=== PATIENT | female | born 1995 | race African-American/Black ===

== ENCOUNTER 2017-05-10 11:52 | Emergency (ER) | payer SELFPAY ==
[~2017-05-10] VITALS: Ht 170.2 cm; Wt 63.9 kg
[2017-05-10] MEDS ORDERED: METRONIDAZOLE (11:58)
[2017-05-10] MEDS ORDERED: SODIUM CHLORIDE 0.9% 1,000 ML IV ONE ×2 (15:13→17:15)
[2017-05-10] MEDS ORDERED: ONDANSETRON HCL 4MG/2ML VIAL IV STA (15:13)
[2017-05-10 15:48] LABS: BASOPHILS % 0.5 % (0.0-2.0); HEMOGLOBIN. 9.5 g/dL (12.0-16.0); LYMPHOCYTES % 14.5 % (20.0-50.0); MEAN CORPUSCULAR HEMOGLOBIN 25.6 pg (28.0-32.0); MEAN CORPUSCULAR VOLUME 77.5 fL (81.0-99.0); MEAN PLATELET VOLUME 9.7 fl (7.4-10.4); MONOCYTES % 3.8 % (2.0-8.0); NEUTROPHILS % 81.2 % (40.0-76.0); PLATELET 185 x1000/uL (130-400); RED BLOOD CELL COUNT 3.74 mill/uL (4.2-5.4); RED CELL DISTRIBUTION WIDTH 15.3 % (11.6-14.6)
[2017-05-10 15:49] LABS: INR 1.1; PROTHROMBIN TIME 11.4 sec
[2017-05-10 15:50] LABS: CHLORIDE 107 mEq/L (98-107)
[2017-05-10 15:56] LABS: CARBON DIOXIDE 25 mEq/L (21-32)
[2017-05-10] MEDS ORDERED: METOCLOPRAMIDE HCL 10MG/2ML VIAL IV ONE (17:15)
[2017-05-10 17:35] LABS: CLARITY URINE CLEAR (CLEAR); COLOR URINE ORANGE (YELLOW); GLUCOSE URINE NEGATIVE (NEGATIVE); KETONES URINE 4+ (NEGATIVE); LEUKOCYTE ESTERASE URINE 1+ (NEGATIVE); NITRITE URINE NEGATIVE (NEGATIVE); OCCULT BLOOD URINE NEGATIVE (NEGATIVE); PROTEIN URINE 1+ (NEGATIVE); SPECIFIC GRAVITY URINE 1.019 (1.005-1.030)
[2017-05-10] MEDS ORDERED: MORPHINE SULFATE 4 MG/ML CPJ (NOT FOR IM USE) IV ONE (18:00)
[2017-05-10 21:56] VITALS: BP 114/62
== END 2017-05-10 22:00 | disposition home or self-care (01) ==
LOC: ER 11:52
DX: T37.8X5A Adverse effect of other specified systemic anti-infectives and antiparasitics, initial encounter (principal); Y92.89 Other specified places as the place of occurrence of the external cause
CPT/HCPCS: 36415; 76705; 80053; 81001; 83690; 85025; 85610; 96361; 96374; 96375; 99285; J2270; J2405; J2765; J7030; Z7610

== ENCOUNTER 2018-04-10 10:34 | Emergency (ER) | payer SELFPAY ==
[~2018-04-10] VITALS: Ht 167.6 cm; Wt 53.0 kg
[~2018-04-10 10:34] MED LIST: METRONIDAZOLE
[2018-04-10 10:39] VITALS: BP 122/82
[2018-04-10 11:35] LABS: CLARITY URINE CLOUDY (CLEAR); COLOR URINE YELLOW (YELLOW); KETONES URINE NEGATIVE (NEGATIVE); LEUKOCYTE ESTERASE URINE 1+ (NEGATIVE); NITRITE URINE NEGATIVE (NEGATIVE); OCCULT BLOOD URINE TRACE (NEGATIVE); PH URINE 5.5 (4.5-8.0); PROTEIN URINE NEGATIVE (NEGATIVE); SPECIFIC GRAVITY URINE 1.023 (1.005-1.030)
[2018-04-10] MEDS ORDERED: KETOROLAC 60MG/2ML VIAL IM ONE (12:15)
== END 2018-04-10 13:35 | disposition home or self-care (01) ==
LOC: ER 10:34
DX: M54.5 Low back pain (principal); Y93.89 Activity, other specified; W11.XXXA Fall on and from ladder, initial encounter; Y92.89 Other specified places as the place of occurrence of the external cause; N39.0 Urinary tract infection, site not specified; M41.9 Scoliosis, unspecified
CPT/HCPCS: 72110; 81003; 81025; 96372; 99285; J1885

== ENCOUNTER 2018-04-11 18:10 | Emergency (ER) | payer SELFPAY ==
[~2018-04-11] VITALS: Ht 170.2 cm; Wt 55.0 kg
[2018-04-11 18:30] VITALS: BP 106/69
[2018-04-11] MEDS ORDERED: KETOROLAC 60MG/2ML VIAL IM ONE (18:30)
== END 2018-04-11 19:02 | disposition home or self-care (01) ==
LOC: ER 18:10
DX: M54.5 Low back pain (principal)
CPT/HCPCS: 96372; 99283; J1885

== ENCOUNTER 2018-07-25 09:11 | Emergency (ER) | payer SELFPAY ==
[~2018-07-25] VITALS: Ht 170.2 cm; Wt 61.0 kg
[2018-07-25] MEDS ORDERED: KETOROLAC 60MG/2ML VIAL IM ONE (10:00)
[2018-07-25 10:15] VITALS: BP 121/74
== END 2018-07-25 11:05 | disposition home or self-care (01) ==
LOC: ER 09:11
DX: M54.41 Lumbago with sciatica, right side (principal); Z79.899 Other long term (current) drug therapy
CPT/HCPCS: 96372; 99283; J1885

== ENCOUNTER 2019-06-16 19:21 | Emergency (ER) | payer SELFPAY | END 2019-06-17 00:18 | disposition left against medical advice (07) | LOC: ER 06-17 00:01 | DX: Z53.21 Procedure and treatment not carried out due to patient leaving prior to being seen by health care provider (principal) ==

== ENCOUNTER 2020-03-12 17:35 | Emergency (ER) | payer OTHER ==
[~2020-03-12] VITALS: Ht 170.2 cm; Wt 74.0 kg
[2020-03-12] MEDS ORDERED: AZITHROMYCIN 500 MG TABLET PO ONE (18:45)
[2020-03-12] MEDS ORDERED: CEFTRIAXONE SODIUM 250 MG/VIAL IM ONE (18:45)
[2020-03-12 19:01] LABS: CLARITY URINE CLOUDY (CLEAR); COLOR URINE YELLOW (YELLOW); KETONES URINE TRACE (NEGATIVE); LEUKOCYTE ESTERASE URINE 1+ (NEGATIVE); NITRITE URINE NEGATIVE (NEGATIVE); OCCULT BLOOD URINE 2+ (NEGATIVE); PROTEIN URINE 1+ (NEGATIVE); SPECIFIC GRAVITY URINE 1.034 (1.005-1.030)
[2020-03-12 20:21] VITALS: BP 142/111
[2020-03-15 07:10] LABS: NEISSERIA GONORRHOEAE NAA Negative (Negative)
== END 2020-03-12 21:01 | disposition home or self-care (01) ==
LOC: ER 17:35
DX: Z20.2 Contact with and (suspected) exposure to infections with a predominantly sexual mode of transmission (principal)
CPT/HCPCS: 81003; 81025; 87491; 87591; 96372; 99283; J0696

== ENCOUNTER 2021-02-11 21:16 | Emergency (ER) | payer OTHER ==
[~2021-02-11] VITALS: Ht 172.7 cm; Wt 68.8 kg
[2021-02-11 22:00] LABS: CLARITY URINE CLEAR (CLEAR); COLOR URINE YELLOW (YELLOW); KETONES URINE NEGATIVE (NEGATIVE); LEUKOCYTE ESTERASE URINE NEGATIVE (NEGATIVE); NITRITE URINE NEGATIVE (NEGATIVE); OCCULT BLOOD URINE 1+ (NEGATIVE); PH URINE 6.5 (4.5-8.0); PROTEIN URINE NEGATIVE (NEGATIVE); SPECIFIC GRAVITY URINE 1.015 (1.005-1.030)
[2021-02-11] MEDS ORDERED: KETOROLAC 30MG/ML VIAL IM STA (22:10)
[2021-02-11] MEDS ORDERED: SODIUM CHLORIDE 0.9% 1,000 ML IV ONE (22:45)
[2021-02-11 23:05] LABS: BASOPHILS % 0.7 % (0.0-2.0); EOSINOPHILS % 2.6 % (0.0-5.0); HEMATOCRIT. 37.2 % (36.0-48.0); HEMOGLOBIN. 12.5 g/dL (12.0-16.0); LYMPHOCYTES % 39.7 % (20.0-50.0); MEAN CORPUSCULAR HEMOGLOBIN 28.5 pg (28.0-32.0); MEAN CORPUSCULAR VOLUME 84.9 fL (81.0-99.0); MEAN PLATELET VOLUME 10.5 fl (7.4-10.4); MONOCYTES % 8.7 % (2.0-8.0); NEUTROPHILS % 48.3 % (40.0-76.0); PLATELET 198 x1000/uL (130-400); RED BLOOD CELL COUNT 4.38 mill/uL (4.2-5.4); RED CELL DISTRIBUTION WIDTH 12.9 % (11.6-14.6)
[2021-02-11 23:10] LABS: CHLORIDE 108 mEq/L (98-107)
[2021-02-11 23:52] VITALS: BP 126/76
[2021-02-12] MEDS ORDERED: CYCL10TA7 MT (00:30)
[2021-02-12] MEDS ORDERED: NAPR-679 MT (00:30)
[2021-02-12] MEDS ORDERED: CYCLOBENZAPRINE 10MG TABLET PO ONE (01:00)
== END 2021-02-12 02:15 | disposition home or self-care (01) ==
LOC: ER 21:16
DX: D25.9 Leiomyoma of uterus, unspecified (principal); R31.9 Hematuria, unspecified; Z79.899 Other long term (current) drug therapy
CPT/HCPCS: 36415; 74176; 80053; 81003; 81025; 85025; 96360; 96372; 99284; J1885; J7030

== ENCOUNTER 2021-03-03 13:03 | Emergency (ER) | payer OTHER ==
[~2021-03-03] VITALS: Ht 165.1 cm; Wt 77.0 kg
[~2021-03-03 13:03] MED LIST changes: +CYCL10TA7 MT; +NAPR-679 MT
[2021-03-03] MEDS ORDERED: ACETAMINOPHEN 325MG TABLET PO STA (15:13)
[2021-03-03 15:55] LABS: BASOPHILS % 0.7 % (0.0-2.0); EOSINOPHILS % 0.3 % (0.0-5.0); HEMATOCRIT. 37.8 % (36.0-48.0); HEMOGLOBIN. 12.9 g/dL (12.0-16.0); LYMPHOCYTES % 25.4 % (20.0-50.0); MEAN CORPUSCULAR HEMOGLOBIN 28.9 pg (28.0-32.0); MEAN CORPUSCULAR VOLUME 84.9 fL (81.0-99.0); MEAN PLATELET VOLUME 9.7 fl (7.4-10.4); MONOCYTES % 7.2 % (2.0-8.0); NEUTROPHILS % 66.4 % (40.0-76.0); PLATELET 256 x1000/uL (130-400); RED BLOOD CELL COUNT 4.45 mill/uL (4.2-5.4); RED CELL DISTRIBUTION WIDTH 12.8 % (11.6-14.6)
[2021-03-03 16:01] LABS: CHLORIDE 106 mEq/L (98-107)
[2021-03-03 16:24] LABS: B-HCG QUANTITATIVE 7853 mIU/mL (<3)
[2021-03-03] MEDS ORDERED: ACETAMINOPHEN 325MG TABLET PO NR (16:30)
[2021-03-03 16:48] LABS: CLARITY URINE CLEAR (CLEAR); COLOR URINE YELLOW (YELLOW); KETONES URINE 2+ (NEGATIVE); LEUKOCYTE ESTERASE URINE NEGATIVE (NEGATIVE); NITRITE URINE NEGATIVE (NEGATIVE); OCCULT BLOOD URINE 1+ (NEGATIVE); PROTEIN URINE NEGATIVE (NEGATIVE); SPECIFIC GRAVITY URINE 1.021 (1.005-1.030); UROBILINOGEN URINE 0.2 E.U./dL (0.2-1.0)
[2021-03-03 17:03] VITALS: BP 125/85
[2021-03-03] MEDS ORDERED: CEPH250T MT (17:17)
== END 2021-03-03 17:27 | disposition home or self-care (01) ==
LOC: ER 13:03
DX: O23.31 Infections of other parts of urinary tract in pregnancy, first trimester (principal); O26.891 Other specified pregnancy related conditions, first trimester; Z3A.01 Less than 8 weeks gestation of pregnancy
CPT/HCPCS: 36415; 76801; 80053; 81003; 81025; 84702; 85025; 86850; 86900; 99284

== ENCOUNTER 2023-12-22 10:09 | Emergency (ER) | payer OTHER ==
[~2023-12-22] VITALS: Ht 171.4 cm; Wt 74.0 kg
[~2023-12-22 10:09] MED LIST changes: +CEPH250T MT; +CYCL10TA21 MT; -CYCL10TA7 MT
[2023-12-22 10:17] VITALS: O2SAT 99
[2023-12-22] MEDS ORDERED: NITR100C PO (11:57)
[2023-12-22 12:18] LABS: CLARITY URINE CLOUDY (CLEAR); COLOR URINE YELLOW (YELLOW); GLUCOSE URINE NEGATIVE (NEGATIVE); KETONES URINE TRACE (NEGATIVE); LEUKOCYTE ESTERASE URINE 2+ (NEGATIVE); NITRITE URINE NEGATIVE (NEGATIVE); OCCULT BLOOD URINE 2+ (NEGATIVE); PH URINE 6.5 (4.5-8.0); PROTEIN URINE TRACE (NEGATIVE); SPECIFIC GRAVITY URINE 1.022 (1.005-1.030)
[2023-12-22] MEDS: PHENAZOPYRIDINE HCL 100MG TABLET PO ONE (12:23)
[2023-12-22 12:27] LABS: BACTERIA URINE TRACE; SQUAMOUS EPITHELIAL CELL URINE 2+ /lpf (RARE/1+); WBC URINE 50-100 /hpf (0-2); YEAST URINE NONE SEEN
[2023-12-22] MEDS ORDERED: PHEN99.5 PO (13:06)
[2023-12-22 13:09] VITALS: BP 119/70; PULSE 60; RESP 15; TEMP 98.4
== END 2023-12-22 13:10 | disposition home or self-care (01) ==
LOC: ER 10:09
DX: N30.90 Cystitis, unspecified without hematuria (principal)
CPT/HCPCS: 81003; 81025; 99283